=== PATIENT | male | born 1960 | race Caucasian/White ===

== ENCOUNTER → 2017-04-11 | Outpatient (CLI) | payer BC ==
[2017-04-11 10:28] LABS: ALBUMIN 3.5 gm/dL (3.5-5.0); ALK PHOS 65 IU/L (33-138); ALT 34 IU/L (12-78); ANION GAP 10.7 (10.0-19.0); AST 31 IU/L (10-40); BLOOD UREA NITROGEN 24 mg/dL (6-24); CALCIUM 9.4 mg/dL (8.5-10.5); CHLORIDE 101 mMol/L (96-110); CO2 30 mMol/L (22-32); CREATININE 1.2 mg/dL (0.6-1.3); ESTIMATED GFR (MDRD EQUATION) > 60; POTASSIUM 3.7 mMol/L (3.7-5.1); SODIUM 138 mMol/L (135-145); TOTAL BILIRUBIN 0.5 mg/dL (0.0-1.5); TOTAL PROTEIN 7.5 g/dL (6.0-8.4)
== END | disposition disaster alternative care site (69) ==
LOC: GLAB 09:30
PROVIDERS: Urology
DX: C61 Malignant neoplasm of prostate (principal); N20.0 Calculus of kidney; K57.90 Diverticulosis of intestine, part unspecified, without perforation or abscess without bleeding; K44.9 Diaphragmatic hernia without obstruction or gangrene; M45.6 Ankylosing spondylitis lumbar region; M47.896 Other spondylosis, lumbar region; M48.06 Spinal stenosis, lumbar region; M19.012 Primary osteoarthritis, left shoulder
CPT/HCPCS: A9503; Q9967